=== PATIENT | female | born 1935 | race Caucasian/White ===

== ENCOUNTER 2017-02-24 10:42 | Outpatient (CLI) | payer OTHER ==
[~2017-02-24 10:42] MED LIST: LEVO500T20 PO; METR500T PO
== END 2017-02-24 19:29 | disposition home or self-care (01) ==
LOC: SMA 10:42
PROVIDERS: ATTEND Internal Medicine
DX: Z12.31 Encounter for screening mammogram for malignant neoplasm of breast (principal)
CPT/HCPCS: G0202